=== PATIENT | male | born 1960 | race Asian ===

== ENCOUNTER → 2020-08-06 | Outpatient (CLI) | payer SELFPAY ==
[~2020-08-06] MED LIST: LIDOCAINE/PRILOCAINE 2.5-2.5% KIT ONE; MUPIROCIN 2% OINT 22 GM TUBE ONE
== END ==
LOC: WCC 13:57
PROVIDERS: ATTEND Family Medicine Adult Medicine
DX: S01.80XA Unspecified open wound of other part of head, initial encounter (principal); S71.102A Unspecified open wound, left thigh, initial encounter; S10.91XA Abrasion of unspecified part of neck, initial encounter; I10 Essential (primary) hypertension; E78.5 Hyperlipidemia, unspecified; W17.89XA Other fall from one level to another, initial encounter; W45.8XXA Other foreign body or object entering through skin, initial encounter

== ENCOUNTER → 2020-08-13 | Outpatient (CLI) | payer SELFPAY | LOC: WCC 09:47 | PROVIDERS: ATTEND Family Medicine Adult Medicine | DX: S01.80XA Unspecified open wound of other part of head, initial encounter (principal); S71.102A Unspecified open wound, left thigh, initial encounter; S10.91XA Abrasion of unspecified part of neck, initial encounter; I10 Essential (primary) hypertension; E78.5 Hyperlipidemia, unspecified; W45.8XXA Other foreign body or object entering through skin, initial encounter; W17.89XA Other fall from one level to another, initial encounter | CPT/HCPCS: 87071; 87075; 87205 ==

== ENCOUNTER → 2020-08-20 | Outpatient (CLI) | payer SELFPAY | LOC: WCC 10:57 | PROVIDERS: ATTEND Family Medicine Adult Medicine | DX: S01.80XA Unspecified open wound of other part of head, initial encounter (principal); S71.102A Unspecified open wound, left thigh, initial encounter; I10 Essential (primary) hypertension; E78.5 Hyperlipidemia, unspecified; W17.89XA Other fall from one level to another, initial encounter; W45.8XXA Other foreign body or object entering through skin, initial encounter ==

== ENCOUNTER → 2020-08-27 | Outpatient (CLI) | payer SELFPAY | LOC: WCC 09:00 | PROVIDERS: ATTEND Family Medicine Adult Medicine | DX: S01.80XA Unspecified open wound of other part of head, initial encounter (principal); S71.102A Unspecified open wound, left thigh, initial encounter; I10 Essential (primary) hypertension; E78.5 Hyperlipidemia, unspecified; W17.89XA Other fall from one level to another, initial encounter; W45.8XXA Other foreign body or object entering through skin, initial encounter ==

== ENCOUNTER → 2020-09-10 | Outpatient (CLI) | payer SELFPAY | LOC: WCC 09:18 | PROVIDERS: ATTEND Family Medicine Adult Medicine | DX: S71.102A Unspecified open wound, left thigh, initial encounter (principal); S01.80XA Unspecified open wound of other part of head, initial encounter; I10 Essential (primary) hypertension; E78.5 Hyperlipidemia, unspecified; W17.89XA Other fall from one level to another, initial encounter; W45.8XXA Other foreign body or object entering through skin, initial encounter ==

== ENCOUNTER → 2020-09-22 | Outpatient (CLI) | payer SELFPAY | LOC: WCC 09:56 | PROVIDERS: ATTEND Family Medicine Adult Medicine | DX: S71.102A Unspecified open wound, left thigh, initial encounter (principal); L23.3 Allergic contact dermatitis due to drugs in contact with skin; L98.8 Other specified disorders of the skin and subcutaneous tissue; I10 Essential (primary) hypertension; E78.5 Hyperlipidemia, unspecified; W17.89XA Other fall from one level to another, initial encounter; W45.8XXA Other foreign body or object entering through skin, initial encounter ==